=== PATIENT | male | born 1975 | race Caucasian/White ===

== ENCOUNTER 2017-08-08 07:24 | Emergency (ER) | payer OTHER ==
[~2017-08-08] VITALS: Ht 172.7 cm; Wt 78.0 kg
[2017-08-08] MEDS ORDERED: FAMOTIDINE 20 MG/2 ML IVP ONE (08:00)
[2017-08-08] MEDS ORDERED: SODIUM CHLORIDE 0.9% 1,000ML IVBOLUS ONE (08:00)
[2017-08-08] MEDS ORDERED: PLEASE ENTER ALLERGIES MC SCH ×2 (08:00)
[2017-08-08] MEDS ORDERED: ONDANSETRON 2MG/ML, 2ML IVPush ONE (08:00)
[2017-08-08] MEDS ORDERED: FAMOTIDINE 20 MG/2 ML ONE (08:15)
[2017-08-08] MEDS ORDERED: ONDANSETRON 2MG/ML, 2ML ONE (08:15)
[2017-08-08 08:30] LABS: HEMATOCRIT 44.3 % (39.2-51.8); HEMOGLOBIN 14.8 g/dL (13.7-18.0); WHITE BLOOD COUNT 7.5 x10^3/uL (3.4-10)
[2017-08-08 08:38] LABS: ASPARTATE AMINO TRANSFERASE 11 U/L (15-37); BLOOD UREA NITROGEN 20 mg/dL (7-18)
[2017-08-08 09:09] VITALS: BP 109/63
== END 2017-08-08 09:19 | disposition home or self-care (01) ==
LOC: ED 08:10
DX: K29.00 Acute gastritis without bleeding (principal); F17.210 Nicotine dependence, cigarettes, uncomplicated
CPT/HCPCS: 36415; 80053; 81003; 83690; 85025; 96361; 96374; 96375; 99284; J2405; J7030; S0028

== ENCOUNTER 2017-08-17 05:17 | Observation (INO) | payer OTHER ==
[~2017-08-17] VITALS: Ht 172.7 cm; Wt 79.9 kg
[~2017-08-17 05:17] MED LIST: ALPR1TAB6 PO; TRAZ100T15 PO
[2017-08-17] MEDS ORDERED: ZIPRASIDONE 20MG CAPSULE PO STA (05:34)
[2017-08-17] MEDS ORDERED: ZIPRASIDONE 20MG CAPSULE ONE (05:37)
[2017-08-17] MEDS ORDERED: BISACODYL 10 MG SUPP PR PRN (08:30)
[2017-08-17] MEDS ORDERED: ONDANSETRON ODT 4 MG PO PRN (08:30)
[2017-08-17] MEDS ORDERED: ACETAMINOPHEN 325 MG TABLET PO PRN (08:30)
[2017-08-17] MEDS ORDERED: DOCUSATE 100 MG CAPSULE PO PRN (08:30)
[2017-08-17] MEDS ORDERED: POLYETHYLENE GLYCOL 17 GM PACKET PO PRN (08:30)
[2017-08-17] MEDS ORDERED: ZIPRASIDONE 20 MG INJ IM PRN (08:30)
[2017-08-17 09:24] VITALS: BP 117/77
[2017-08-17] MEDS: HYDROcodone/APAP 5/325 TABLET PO PRN ×4 (10:02→22:52)
[2017-08-17] MEDS: NICOTINE 14MG/24 HR PATCH.TD24 TD SCH (10:03)
[2017-08-17 16:17] VITALS: BP 106/69
[2017-08-17 19:20] VITALS: BP 101/56
[2017-08-17] MEDS: TRAZODONE 50MG TABLET PO PRN (20:40)
[2017-08-18] MEDS: HYDROcodone/APAP 5/325 TABLET PO PRN ×2 (03:15→07:56)
[2017-08-18 05:38] LABS: HEMATOCRIT 41.5 % (39.2-51.8); HEMOGLOBIN 14.1 g/dL (13.7-18.0); WHITE BLOOD COUNT 5.9 x10^3/uL (3.4-10)
[2017-08-18 05:50] LABS: BLOOD UREA NITROGEN 14 mg/dL (7-18)
[2017-08-18 07:10] VITALS: BP 126/78
[2017-08-18] MEDS: NICOTINE 14MG/24 HR PATCH.TD24 TD SCH (08:04)
[2017-08-18] MEDS: HYDROcodone/APAP 10/325 MG TABLET PO PRN ×3 (12:09→20:03)
[2017-08-18 19:48] VITALS: BP 101/66
[2017-08-18] MEDS: TRAZODONE 50MG TABLET PO PRN ×2 (20:03→20:48)
[2017-08-19] MEDS: HYDROcodone/APAP 10/325 MG TABLET PO PRN ×5 (06:16→23:03)
[2017-08-19 07:29] VITALS: BP 106/71
[2017-08-19] MEDS: NICOTINE 14MG/24 HR PATCH.TD24 TD SCH (08:30)
[2017-08-19] MEDS: ZIPRASIDONE 20MG CAPSULE PO PRN (18:56)
[2017-08-19 19:37] VITALS: BP 108/69
[2017-08-19] MEDS: TRAZODONE 50MG TABLET PO PRN (20:04)
[2017-08-19] MEDS ORDERED: MONTELUKAST 10 MG TABLET PO SCH (21:00)
[2017-08-20] MEDS: HYDROcodone/APAP 10/325 MG TABLET PO PRN ×3 (05:16→14:12)
[2017-08-20 05:28] LABS: HEMATOCRIT 40.1 % (39.2-51.8); HEMOGLOBIN 13.6 g/dL (13.7-18.0); WHITE BLOOD COUNT 5.4 x10^3/uL (3.4-10)
[2017-08-20 05:37] LABS: BLOOD UREA NITROGEN 17 mg/dL (7-18)
[2017-08-20 07:14] VITALS: BP 104/68
[2017-08-20] MEDS: NICOTINE 14MG/24 HR PATCH.TD24 TD SCH (07:56)
[2017-08-20] MEDS: ZIPRASIDONE 20MG CAPSULE PO PRN (07:57)
== END 2017-08-20 17:48 ==
LOC: ED 05:29 → EDIP 07:31 → 3E 09:15
PROVIDERS: ADMIT Internal Medicine; ATTEND Internal Medicine
DX: R45.851 Suicidal ideations (principal); F31.9 Bipolar disorder, unspecified; F41.9 Anxiety disorder, unspecified; I10 Essential (primary) hypertension; F22 Delusional disorders; F20.9 Schizophrenia, unspecified; Z91.14 Patient's other noncompliance with medication regimen; F17.210 Nicotine dependence, cigarettes, uncomplicated
CPT/HCPCS: 36415; 71020; 80048; 84439; 84443; 85025; 99285; G0378

== ENCOUNTER 2018-03-26 12:01 | Emergency (ER) | payer MEDICAID ==
[~2018-03-26] VITALS: Ht 172.7 cm; Wt 83.2 kg
[2018-03-26 12:03] VITALS: BP 123/79
[2018-03-26 12:57] LABS: BASOPHILS # (AUTO) 0.05 x10^3/uL (0-0.1); BASOPHILS % (AUTO) 1 % (0-1); EOSINOPHILS % (AUTO) 1 % (1-7); LYMPHOCYTES # (AUTO) 1.23 x10^3/uL (1-3.4); LYMPHOCYTES % (AUTO) 14 % (22-44); MD NO; MEAN CORPUSCULAR HEMOGLOBIN 27.8 pg (27.5-34.5); MEAN CORPUSCULAR HGB CONC 33.9 g/dL (33.2-36.2); MEAN CORPUSCULAR VOLUME 82.1 fL (81-97); MEAN PLATELET VOLUME 7.9 fL (7.4-10.4); MONOCYTES # (AUTO) 0.57 x10^3/uL (0.2-0.8); MONOCYTES % (AUTO) 7 % (2-9); NEUTROPHILS # (AUTO) 6.57 x10^3/uL (1.8-6.8); NEUTROPHILS % (AUTO) 77 % (42-75); PLATELET COUNT 290 x10^3/uL (130-400); RED BLOOD COUNT 5.85 x10^6/uL (4.38-5.82); RED CELL DISTRIBUTION WIDTH 13.9 % (9.4-14.8)
[2018-03-26 13:04] LABS: ALBUMIN 3.6 g/dL (3.4-5.0); CHLORIDE 106 mmol/L (98-107)
[2018-03-26 13:07] LABS: ANION GAP 8 mmol/L (5-15); CREATININE 1.13 mg/dL (0.7-1.3)
[2018-03-26] MEDS ORDERED: HYDROcodone/APAP 5/325 TABLET ONE (14:13)
[2018-03-26] MEDS ORDERED: CEFTRIAXONE 250 MG ONE (14:13)
[2018-03-26] MEDS ORDERED: CEFTRIAXONE 250 MG IM ONE (14:30)
[2018-03-26] MEDS ORDERED: HYDROcodone/APAP 5/325 TABLET PO PRN (14:30)
== END 2018-03-26 14:38 | disposition home or self-care (01) ==
LOC: ED 14:12
DX: N45.1 Epididymitis (principal)
CPT/HCPCS: 36415; 76870; 80048; 82040; 85025; 96372; 99285; J0696

== ENCOUNTER 2018-05-01 06:51 | Observation (INO) | payer MEDICAID ==
[~2018-05-01] VITALS: Ht 174 cm; Wt 80.0 kg
[2018-05-01 07:39] LABS: ALANINE AMINOTRANSFERASE 24 U/L (12-78); ALBUMIN 3.9 g/dL (3.4-5.0); ANION GAP 8 mmol/L (5-15); CHLORIDE 107 mmol/L (98-107); CREATININE 1.01 mg/dL (0.7-1.3)
[2018-05-01 07:41] LABS: ALKALINE PHOSPHATASE 63 U/L (45-117); BILIRUBIN,TOTAL 0.7 mg/dL (0.2-1.0); TOTAL PROTEIN 7.2 g/dL (6.4-8.2)
[2018-05-01 07:45] LABS: ACETAMINOPHEN < 2 mcg/mL (10-30); SALICYLATE LEVEL < 1.7 mg/dL (2.8-20.0)
[2018-05-01 07:56] LABS: AMPHETAMINE SCREEN, URINE Negative (Negative); BARBITURATE SCREEN, URINE Negative (Negative); BENZODIAZEPINE SCREEN, URINE Negative (Negative); CANNABINOID SCREEN, URINE Positive (Negative); COCAINE SCREEN, URINE Negative (Negative); METHADONE SCREEN, URINE Negative (Negative); OPIATE SCREEN, URINE Negative (Negative)
[2018-05-01 08:04] LABS: BASOPHILS # (AUTO) 0.03 x10^3/uL (0-0.1); BASOPHILS % (AUTO) 1 % (0-1); EOSINOPHILS # (AUTO) 0.21 x10^3/uL (0-0.4); EOSINOPHILS % (AUTO) 4 % (1-7); LYMPHOCYTES # (AUTO) 1.74 x10^3/uL (1-3.4); LYMPHOCYTES % (AUTO) 30 % (22-44); MD NO; MEAN CORPUSCULAR HEMOGLOBIN 28.3 pg (27.5-34.5); MEAN CORPUSCULAR HGB CONC 33.8 g/dL (33.2-36.2); MEAN CORPUSCULAR VOLUME 83.8 fL (81-97); MEAN PLATELET VOLUME 7.8 fL (7.4-10.4); MONOCYTES # (AUTO) 0.39 x10^3/uL (0.2-0.8); MONOCYTES % (AUTO) 7 % (2-9); NEUTROPHILS # (AUTO) 3.45 x10^3/uL (1.8-6.8); NEUTROPHILS % (AUTO) 59 % (42-75); PLATELET COUNT 287 x10^3/uL (130-400); RED BLOOD COUNT 5.23 x10^6/uL (4.38-5.82); RED CELL DISTRIBUTION WIDTH 14.5 % (9.4-14.8)
[2018-05-01] MEDS ORDERED: ACETAMINOPHEN 325 MG TABLET PO PRN (10:00)
[2018-05-01 10:58] VITALS: BP 118/76
[2018-05-01] MEDS: LORazepam 1MG TABLET PO PRN (19:09)
[2018-05-01 19:26] VITALS: BP 121/82
[2018-05-02 07:45] VITALS: BP 115/76
[2018-05-02] MEDS: LORazepam 1MG TABLET PO PRN ×2 (08:06→15:48)
[2018-05-02 19:12] VITALS: BP 119/77
[2018-05-02] MEDS: DIPHENHYDRAMINE 25 MG CAPSULE PO PRN ×2 (19:40→21:11)
[2018-05-03] MEDS: LORazepam 1MG TABLET PO PRN ×2 (04:52→13:04)
[2018-05-03 09:01] VITALS: BP 135/85
== END 2018-05-03 15:29 ==
LOC: ED 07:56 → EDIP 08:51 → SUATTDRO 09:58 → 2N 10:50
PROVIDERS: ADMIT Internal Medicine; ATTEND Internal Medicine
DX: R45.851 Suicidal ideations (principal); F31.9 Bipolar disorder, unspecified; Z59.0 Homelessness; Z91.14 Patient's other noncompliance with medication regimen
CPT/HCPCS: 36415; 80053; 80307; 80329; 85025; 99285; G0378; Q0163; G0480

== ENCOUNTER 2018-06-03 17:54 | Observation (INO) | payer MEDICAID ==
[~2018-06-03] VITALS: Ht 175.3 cm; Wt 82.0 kg
[~2018-06-03 17:54] MED LIST changes: +TRAZ-137 PO; -TRAZ100T15 PO
[2018-06-03 18:35] LABS: BASOPHILS # (AUTO) 0.01 x10^3/uL (0-0.1); BASOPHILS % (AUTO) 0 % (0-1); EOSINOPHILS % (AUTO) 1 % (1-7); LYMPHOCYTES # (AUTO) 1.39 x10^3/uL (1-3.4); LYMPHOCYTES % (AUTO) 18 % (22-44); MD NO; MEAN CORPUSCULAR HEMOGLOBIN 28.9 pg (27.5-34.5); MEAN CORPUSCULAR HGB CONC 34.1 g/dL (33.2-36.2); MEAN CORPUSCULAR VOLUME 84.8 fL (81-97); MEAN PLATELET VOLUME 7.7 fL (7.4-10.4); MONOCYTES # (AUTO) 0.34 x10^3/uL (0.2-0.8); MONOCYTES % (AUTO) 5 % (2-9); NEUTROPHILS # (AUTO) 5.73 x10^3/uL (1.8-6.8); NEUTROPHILS % (AUTO) 76 % (42-75); PLATELET COUNT 315 x10^3/uL (130-400); RED BLOOD COUNT 5.52 x10^6/uL (4.38-5.82); RED CELL DISTRIBUTION WIDTH 14.9 % (9.4-14.8)
[2018-06-03 18:42] LABS: ALBUMIN 4.3 g/dL (3.4-5.0); ANION GAP 9 mmol/L (5-15); CALCIUM 9.4 mg/dL (8.5-10.1); CHLORIDE 107 mmol/L (98-107); CREATININE 1.07 mg/dL (0.7-1.3); SALICYLATE LEVEL 6.3 mg/dL (2.8-20.0)
[2018-06-03 18:45] LABS: ACETAMINOPHEN < 2 mcg/mL (10-30)
[2018-06-03] MEDS ORDERED: ACETAMINOPHEN 500 MG TABLET ONE (18:45)
[2018-06-03] MEDS ORDERED: ACETAMINOPHEN 500 MG TABLET PO ONE (19:00)
[2018-06-03 19:06] LABS: AMPHETAMINE SCREEN, URINE Negative (Negative); BARBITURATE SCREEN, URINE Positive (Negative); BENZODIAZEPINE SCREEN, URINE Negative (Negative); CANNABINOID SCREEN, URINE Negative (Negative); COCAINE SCREEN, URINE Negative (Negative); METHADONE SCREEN, URINE Negative (Negative); OPIATE SCREEN, URINE Negative (Negative)
[2018-06-03] MEDS ORDERED: ONDANSETRON ODT 4 MG PO PRN (20:00)
[2018-06-03] MEDS ORDERED: BISACODYL 10 MG SUPP PR PRN (20:00)
[2018-06-03] MEDS ORDERED: POLYETHYLENE GLYCOL 17 GM PACKET PO PRN (20:00)
[2018-06-03] MEDS ORDERED: RISPERIDONE 2 MG TABLET ONE (20:54)
[2018-06-03] MEDS ORDERED: TRAZODONE 50MG TABLET ONE (20:54)
[2018-06-03] MEDS ORDERED: TRAZODONE 50MG TABLET PO SCH (21:00)
[2018-06-03] MEDS ORDERED: RISPERIDONE 2 MG TABLET PO SCH (21:00)
[2018-06-03] MEDS ORDERED: RISP2TAB35 PO (21:56)
[2018-06-03] MEDS ORDERED: CLON1TAB4 PO (21:56)
[2018-06-03 22:45] VITALS: BP 112/78
[2018-06-04 07:53] VITALS: BP 100/68
[2018-06-04] MEDS ORDERED: SENNA/DOCUSATE TABLET PO SCH (09:00)
== END 2018-06-04 19:07 ==
LOC: ED 19:29 → INTOOBSV 19:36 → EDIP 19:36 → 2N 22:40
PROVIDERS: ADMIT Hospitalist; ATTEND Hospitalist
DX: R45.851 Suicidal ideations (principal); R00.1 Bradycardia, unspecified; F31.9 Bipolar disorder, unspecified; F41.9 Anxiety disorder, unspecified; Z59.0 Homelessness; F17.200 Nicotine dependence, unspecified, uncomplicated
CPT/HCPCS: 36415; 80048; 80307; 80329; 82040; 85025; 99285; G0378; G0480

== ENCOUNTER 2018-06-22 21:50 | Observation (INO) | payer MEDICAID ==
[~2018-06-22] VITALS: Ht 172.7 cm; Wt 91.4 kg
[~2018-06-22 21:50] MED LIST changes: +CLON1TAB4 PO; +RISP2TAB35 PO
[2018-06-22 23:01] LABS: BASOPHILS # (AUTO) 0.06 x10^3/uL (0-0.1); BASOPHILS % (AUTO) 1 % (0-1); EOSINOPHILS % (AUTO) 5 % (1-7); LYMPHOCYTES # (AUTO) 2.03 x10^3/uL (1-3.4); LYMPHOCYTES % (AUTO) 31 % (22-44); MD NO; MEAN CORPUSCULAR HEMOGLOBIN 28.8 pg (27.5-34.5); MEAN CORPUSCULAR HGB CONC 34.3 g/dL (33.2-36.2); MEAN CORPUSCULAR VOLUME 84.1 fL (81-97); MEAN PLATELET VOLUME 7.5 fL (7.4-10.4); MONOCYTES # (AUTO) 0.62 x10^3/uL (0.2-0.8); MONOCYTES % (AUTO) 10 % (2-9); NEUTROPHILS # (AUTO) 3.52 x10^3/uL (1.8-6.8); NEUTROPHILS % (AUTO) 54 % (42-75); PLATELET COUNT 249 x10^3/uL (130-400); RED BLOOD COUNT 5.22 x10^6/uL (4.38-5.82)
[2018-06-22] MEDS ORDERED: TRAZ-137 PO (23:06)
[2018-06-22] MEDS ORDERED: CLON1TAB PO (23:06)
[2018-06-22] MEDS ORDERED: TRAM100T33 PO (23:06)
[2018-06-22 23:10] LABS: ALANINE AMINOTRANSFERASE 56 U/L (12-78); ALBUMIN 3.8 g/dL (3.4-5.0); ANION GAP 7 mmol/L (5-15); CALCIUM 8.7 mg/dL (8.5-10.1); CHLORIDE 106 mmol/L (98-107); CREATININE 1.16 mg/dL (0.7-1.3)
[2018-06-22 23:12] LABS: ALKALINE PHOSPHATASE 60 U/L (45-117); BILIRUBIN,TOTAL 0.4 mg/dL (0.2-1.0); TOTAL PROTEIN 7.3 g/dL (6.4-8.2)
[2018-06-22 23:14] LABS: SALICYLATE LEVEL < 1.7 mg/dL (2.8-20.0)
[2018-06-22 23:15] LABS: ACETAMINOPHEN < 2 mcg/mL (10-30)
[2018-06-22 23:46] LABS: CULTURE INDICATED? NO; MICROSCOPIC NOT IND
[2018-06-22 23:56] LABS: AMPHETAMINE SCREEN, URINE Negative (Negative); BARBITURATE SCREEN, URINE Negative (Negative); BENZODIAZEPINE SCREEN, URINE Negative (Negative); CANNABINOID SCREEN, URINE Negative (Negative); COCAINE SCREEN, URINE Negative (Negative); METHADONE SCREEN, URINE Negative (Negative); OPIATE SCREEN, URINE Negative (Negative)
[2018-06-23] MEDS ORDERED: TRAM50TA2 PO (09:22)
[2018-06-23] MEDS ORDERED: RISP2TAB3 PO (09:22)
[2018-06-23] MEDS ORDERED: NICOTINE 21 MG/24 HR PATCH.TD24 ONE (10:25)
[2018-06-23] MEDS: NICOTINE 21 MG/24 HR PATCH.TD24 TD SCH (10:29)
[2018-06-23] MEDS ORDERED: TEMPLATE NON-FORMULARY MED. (Clonazepam** 1 MG) PO SCH (10:30)
[2018-06-23 19:40] VITALS: BP 100/62
[2018-06-23] MEDS: RISPERIDONE 2 MG TABLET PO SCH (20:25)
[2018-06-23] MEDS: TRAZODONE 100MG TABLET PO SCH (20:25)
[2018-06-24] MEDS: NICOTINE 21 MG/24 HR PATCH.TD24 TD SCH (08:08)
[2018-06-24 08:21] VITALS: BP 94/58
[2018-06-24] MEDS: LORazepam 1MG TABLET PO PRN ×2 (18:08→20:37)
[2018-06-24 19:20] VITALS: BP 116/76
[2018-06-24] MEDS: TRAZODONE 100MG TABLET PO SCH (20:29)
[2018-06-24] MEDS: RISPERIDONE 2 MG TABLET PO SCH (20:30)
[2018-06-25] MEDS: NICOTINE 21 MG/24 HR PATCH.TD24 TD SCH (09:20)
[2018-06-25 09:57] VITALS: BP 113/76
[2018-06-25] MEDS: LORazepam 1MG TABLET PO PRN (15:18)
[2018-06-25 20:02] VITALS: BP 116/78
[2018-06-25] MEDS: TRAZODONE 100MG TABLET PO SCH (20:19)
[2018-06-25] MEDS: RISPERIDONE 2 MG TABLET PO SCH (20:20)
[2018-06-26 07:45] VITALS: BP 99/63
[2018-06-26] MEDS: NICOTINE 21 MG/24 HR PATCH.TD24 TD SCH (08:24)
[2018-06-26] MEDS: LORazepam 1MG TABLET PO PRN (10:23)
[2018-06-26 19:29] VITALS: BP 94/66
[2018-06-26 19:49] VITALS: BP 106/73
[2018-06-26] MEDS: TRAZODONE 100MG TABLET PO SCH (20:28)
[2018-06-26] MEDS: RISPERIDONE 2 MG TABLET PO SCH (20:28)
[2018-06-26 21:55] VITALS: BP 112/76
[2018-06-27 08:03] VITALS: BP 134/73
[2018-06-27] MEDS: NICOTINE 21 MG/24 HR PATCH.TD24 TD SCH (09:51)
[2018-06-27 19:14] VITALS: BP 108/73
[2018-06-27] MEDS: RISPERIDONE 2 MG TABLET PO SCH (20:13)
[2018-06-27] MEDS: TRAZODONE 100MG TABLET PO SCH (20:13)
[2018-06-27 21:28] VITALS: BP 116/78
[2018-06-28 08:09] VITALS: BP 109/68
[2018-06-28] MEDS: NICOTINE 21 MG/24 HR PATCH.TD24 TD SCH (08:32)
[2018-06-28 19:27] VITALS: BP 100/67
[2018-06-28] MEDS: TRAZODONE 100MG TABLET PO SCH (21:06)
[2018-06-28] MEDS: RISPERIDONE 2 MG TABLET PO SCH (21:07)
[2018-06-29 07:44] VITALS: BP 97/67
[2018-06-29] MEDS: NICOTINE 21 MG/24 HR PATCH.TD24 TD SCH (08:39)
[2018-06-29 19:31] VITALS: BP 109/71
[2018-06-29] MEDS: TRAZODONE 100MG TABLET PO SCH (20:25)
[2018-06-29] MEDS: RISPERIDONE 2 MG TABLET PO SCH (20:25)
[2018-06-30 08:37] VITALS: BP 99/65
[2018-06-30] MEDS: NICOTINE 21 MG/24 HR PATCH.TD24 TD SCH (10:04)
[2018-06-30 19:32] VITALS: BP 99/72
[2018-06-30] MEDS: TRAZODONE 100MG TABLET PO SCH (20:29)
[2018-06-30] MEDS: RISPERIDONE 2 MG TABLET PO SCH (20:30)
[2018-07-01] MEDS: NICOTINE 21 MG/24 HR PATCH.TD24 TD SCH (08:02)
[2018-07-01 08:05] VITALS: BP 93/62
== END 2018-07-01 13:30 ==
LOC: ED 23:10 → EDIP 06-23 09:20 → INTOOBSV 06-23 09:20 → OBSVTOIN 06-23 09:20 → 2N 06-23 09:21
PROVIDERS: ADMIT Family Medicine; ATTEND Internal Medicine
DX: R45.851 Suicidal ideations (principal); F31.9 Bipolar disorder, unspecified; E66.9 Obesity, unspecified; F15.10 Other stimulant abuse, uncomplicated; F41.1 Generalized anxiety disorder; G47.00 Insomnia, unspecified; Z72.0 Tobacco use; Z91.5 Personal history of self-harm
CPT/HCPCS: 36415; 80053; 80307; 80329; 81003; 85025; 99285; G0378; G0480

== ENCOUNTER 2018-09-12 09:09 | Observation (INO) | payer MEDICAID ==
[~2018-09-12] VITALS: Ht 172.7 cm; Wt 91.3 kg
[~2018-09-12 09:09] MED LIST changes: +CLON1TAB PO; +CLON1TAB11 PO; -CLON1TAB4 PO; +RISP2TAB3 PO; +TRAM100T33 PO; +TRAM50TA2 PO
[2018-09-12 10:13] LABS: AMPHETAMINE SCREEN, URINE Negative (Negative); BARBITURATE SCREEN, URINE Negative (Negative); BENZODIAZEPINE SCREEN, URINE Negative (Negative); CANNABINOID SCREEN, URINE Negative (Negative); COCAINE SCREEN, URINE Negative (Negative); METHADONE SCREEN, URINE Negative (Negative); OPIATE SCREEN, URINE Negative (Negative)
[2018-09-12 10:40] LABS: BASOPHILS # (AUTO) 0.06 x10^3/uL (0-0.1); BASOPHILS % (AUTO) 1 % (0-1); EOSINOPHILS # (AUTO) 0.13 x10^3/uL (0-0.4); EOSINOPHILS % (AUTO) 2 % (1-7); LYMPHOCYTES # (AUTO) 1.17 x10^3/uL (1-3.4); LYMPHOCYTES % (AUTO) 13 % (22-44); MD NO; MEAN CORPUSCULAR HEMOGLOBIN 27.7 pg (27.5-34.5); MEAN CORPUSCULAR HGB CONC 33.6 g/dL (33.2-36.2); MEAN CORPUSCULAR VOLUME 82.4 fL (81-97); MEAN PLATELET VOLUME 7.6 fL (7.4-10.4); MONOCYTES # (AUTO) 0.47 x10^3/uL (0.2-0.8); MONOCYTES % (AUTO) 5 % (2-9); NEUTROPHILS # (AUTO) 6.92 x10^3/uL (1.8-6.8); NEUTROPHILS % (AUTO) 79 % (42-75); PLATELET COUNT 295 x10^3/uL (130-400); RED CELL DISTRIBUTION WIDTH 13.8 % (9.4-14.8)
[2018-09-12 10:47] LABS: ALBUMIN 4.5 g/dL (3.4-5.0); ANION GAP 10 mmol/L (5-15); CALCIUM 9.5 mg/dL (8.5-10.1); CHLORIDE 109 mmol/L (98-107); CREATININE 1.14 mg/dL (0.7-1.3)
[2018-09-12 10:48] LABS: ACETAMINOPHEN < 2 mcg/mL (10-30); SALICYLATE LEVEL < 1.7 mg/dL (2.8-20.0)
[2018-09-12] MEDS ORDERED: DOCUSATE 100 MG CAPSULE PO PRN (12:30)
[2018-09-12] MEDS ORDERED: POLYETHYLENE GLYCOL 17 GM PACKET PO PRN (12:30)
[2018-09-12] MEDS ORDERED: ACETAMINOPHEN 325 MG TABLET PO PRN (12:30)
[2018-09-12] MEDS ORDERED: BISACODYL 10 MG SUPP PR PRN (12:30)
[2018-09-12] MEDS ORDERED: ONDANSETRON ODT 4 MG PO PRN (12:30)
[2018-09-12] MEDS ORDERED: TEMPLATE NON-FORMULARY MED. (Clonazepam** 1 MG) PO SCH (16:00)
[2018-09-12 20:42] VITALS: BP 115/81
[2018-09-12] MEDS: TRAZODONE 100MG TABLET PO SCH (21:38)
[2018-09-12] MEDS: RISPERIDONE 2 MG TABLET PO SCH (21:38)
[2018-09-13 08:29] VITALS: BP 120/79
[2018-09-13 20:24] VITALS: BP 112/79
[2018-09-13] MEDS: RISPERIDONE 2 MG TABLET PO SCH (20:29)
[2018-09-13] MEDS: TRAZODONE 100MG TABLET PO SCH (20:29)
[2018-09-14 08:00] VITALS: BP 121/75
[2018-09-14 20:02] VITALS: BP 118/79
[2018-09-14] MEDS: RISPERIDONE 2 MG TABLET PO SCH (20:22)
[2018-09-14] MEDS: TRAZODONE 100MG TABLET PO SCH (20:22)
[2018-09-15 07:45] VITALS: BP 110/72
== END 2018-09-15 11:53 ==
LOC: ED 10:11 → EDIP 11:18 → 2N 17:50
PROVIDERS: ADMIT Internal Medicine; ATTEND Internal Medicine
DX: R45.851 Suicidal ideations (principal); F31.9 Bipolar disorder, unspecified; F17.210 Nicotine dependence, cigarettes, uncomplicated; F20.89 Other schizophrenia; R00.0 Tachycardia, unspecified; Z82.49 Family history of ischemic heart disease and other diseases of the circulatory system; Z91.5 Personal history of self-harm
CPT/HCPCS: 36415; 80048; 80307; 80329; 82040; 84443; 85025; 99284; G0378; G0480